=== PATIENT | female | born 1980 | race Asian ===

== ENCOUNTER 2017-10-26 13:55 | Outpatient (CLI) | payer BC | END 2017-10-26 13:56 | disposition home or self-care (01) | LOC: BICULT 13:55 | PROVIDERS: ATTEND Urology | DX: D30.01 Benign neoplasm of right kidney (principal); R35.0 Frequency of micturition; R31.29 Other microscopic hematuria; N28.9 Disorder of kidney and ureter, unspecified | CPT/HCPCS: 76770 ==

== ENCOUNTER 2017-12-01 16:04 | Emergency (ER) | payer BC ==
[~2017-12-01 16:04] MED LIST: Iopamidol 370 76% 100 ML VIAL ONE
[2017-12-01 17:20] LABS: #Basophils 0.1 thou/uL (0.0-0.2); #Eosinphils 0.2 thou/uL (0.0-0.7); #Lymphocytes 3.2 thou/uL (1.20-3.40); #Monocytes 0.5 thou/uL (0.11-0.59); #Neutrophils 6.1 thou/uL (1.40-6.50); %Basophils 0.8 % (0.0-1.0); %Eosinophils 1.9 % (0.0-10.0); %Lymphocytes 31.8 % (21.0-51.0); %Neutrophils 60.6 % (42.0-75.0); Hemoglobin 13.7 g/dL (12.0-16.0); Mean Corpuscular HGB CONC 33.8 g/dL (32.0-36.0); Mean Corpuscular Hemoglobin 28.8 pg (27.0-31.0); Mean Corpuscular Volume 85.2 fL (78.0-98.0); Mean Platelet Volume 7.3 fL (7.4-10.4); Platelet Count 235 thou/uL (130-400); RBC Distribution Width 10.8 % (11.5-14.5); Red Blood Cell (RBC) Count 4.75 mill/uL (4.20-5.40)
[2017-12-01 17:32] LABS: Anion Gap 10 mmol/L (10-20); BUN (Urea Nitrogen) 10 mg/dL (7.0-18.7); Calc. Creatinine Clearance 0 mL/min (70-130); Calcium 9.2 mg/dL (7.8-10.44); Carbon Dioxide 23 mmol/L (22-29); Chloride 109 mmol/L (98-107); Estimated GFR-MDRD 89; Glucose 90 mg/dL (70-105); Potassium 3.2 mmol/L (3.5-5.1); Sodium 139 mmol/L (136-145)
--- NOTE | 2017-12-01 18:57 | CT ---
CT OF NECK PERFORMED WITH INTRAVENOUS CONTRAST ENHANCEMENT: 12/01/17 HISTORY: Patient reports to the Emergency Department with the feeling of something stuck in her throat for the past month. Feeling worst today. Coughed up some blood noted in the phlegm. The visualized brain parenchyma is unremarkable. The parotid and submandibular glands are normal in a ppearance. No significant jugular chain adenopathy. The thyroid gland is normal in size. The tonsils do not appear enlarged. There is no peritonsillar inflammatory change. The parapharyngeal spaces are clear. Some tiny hypodensities associated with the left tonsillar pillar potentially very tiny crypts . I doubt this is of any significance. The epiglottis and vocal cord regions are normal in appearance. I do not see any evidence for airway compromise. The lung apices are clear. No evidence of any significant sinus disease. Minimal mucosal change of the left maxillary sinus is p resent. IMPRESSION: No acute abnormalities of the neck. POS: [facility]
== END 2017-12-01 18:18 | disposition home or self-care (01) ==
LOC: SCSER 16:04
DX: T17.208A Unspecified foreign body in pharynx causing other injury, initial encounter (principal); R13.10 Dysphagia, unspecified
CPT/HCPCS: 70492; 80048; 85025

== ENCOUNTER 2018-10-29 12:40 | Outpatient (CLI) | payer BC ==
--- NOTE | 2018-10-29 13:14 | ULT ---
Renal ultrasound: 10/29/2018 COMPARISON: 10/26/2017 HISTORY: Angiomyolipoma TECHNIQUE: Multiplanar grayscale sonographic imaging of the kidneys and urinary bladder obtained. FINDINGS: The right kidney measures 8.8 cm in craniocaudal dimension. Cortical thickness is 1.4 cm. N onspecific tiny echogenic focus noted within the renal cortex on the right measuring 3 x 4 x 3 mm. This is stable when compared to the prior examination. Left kidney measures 9.3 cm in craniocaudal dimension. Cortical thickness is 1.9 cm. No mass, hydrone phrosis, or stone on the left. Urinary bladder unremarkable. IMPRESSION: Stable renal ultrasound as detailed above.
== END 2018-10-29 12:41 | disposition home or self-care (01) ==
LOC: BICULT 12:40
PROVIDERS: ATTEND Urology
DX: D17.71 Benign lipomatous neoplasm of kidney (principal)
CPT/HCPCS: 76770; 81001; 87086

== ENCOUNTER 2021-01-05 08:38 | Outpatient (CLI) | payer BC ==
[2021-01-05] MEDS ORDERED: Iopamidol-370 76% 500 ML 1 ML ONE (09:34)
== END 2021-01-05 08:39 | disposition home or self-care (01) ==
LOC: BICCT 08:38
PROVIDERS: ATTEND Physician Assistant Medical
DX: R10.84 Generalized abdominal pain (principal); R63.4 Abnormal weight loss; R19.5 Other fecal abnormalities
CPT/HCPCS: 74177; Q9967

== ENCOUNTER 2021-01-26 09:33 | Outpatient (CLI) | payer BC | END 2021-01-26 09:34 | disposition home or self-care (01) | LOC: BICULT 09:33 | PROVIDERS: ATTEND Urology | DX: R31.29 Other microscopic hematuria (principal); R93.421 Abnormal radiologic findings on diagnostic imaging of right kidney | CPT/HCPCS: 76770 ==

== ENCOUNTER 2023-09-11 15:34 | Outpatient (CLI) | payer BC | END 2023-09-11 15:35 | disposition home or self-care (01) | LOC: BICULT 15:34 | PROVIDERS: ATTEND Urology | DX: D17.71 Benign lipomatous neoplasm of kidney (principal); R31.29 Other microscopic hematuria; R35.0 Frequency of micturition; R80.8 Other proteinuria | CPT/HCPCS: 36415; 76770; 80048; 81001; 87086 ==

== ENCOUNTER 2024-01-25 09:30 | Outpatient (CLI) | payer BC | END 2024-01-25 09:31 | disposition home or self-care (01) | LOC: BICULT 09:30 | PROVIDERS: ATTEND Internal Medicine Gastroenterology | DX: R93.2 Abnormal findings on diagnostic imaging of liver and biliary tract (principal); N28.89 Other specified disorders of kidney and ureter; R19.5 Other fecal abnormalities; R63.5 Abnormal weight gain; K76.89 Other specified diseases of liver | CPT/HCPCS: 76705 ==

== ENCOUNTER 2024-03-21 08:34 | Outpatient (CLI) | payer BC ==
[2024-03-21] MEDS ORDERED: E-Z-HD 98% W/W 340GM BOT (x-ray ONLY) ONE (08:54)
[2024-03-21] MEDS ORDERED: Barium Sulfate 96% 176 GM BOT (xray ONLY) ONE (08:54)
== END 2024-03-21 08:35 | disposition home or self-care (01) ==
LOC: RAD 08:34
PROVIDERS: ATTEND Internal Medicine Gastroenterology
DX: K64.8 Other hemorrhoids (principal); F45.8 Other somatoform disorders; R63.5 Abnormal weight gain
CPT/HCPCS: 74220

== ENCOUNTER 2024-10-22 09:10 | Outpatient (CLI) | payer BC ==
[2024-10-22] MEDS ORDERED: E-Z-HD 98% W/W 340GM BOT (x-ray ONLY) ONE (09:23)
[2024-10-22] MEDS ORDERED: Barium Sulfate 96% 176 GM BOT (xray ONLY) ONE (09:23)
== END 2024-10-22 09:11 | disposition home or self-care (01) ==
LOC: RAD 09:10
PROVIDERS: ATTEND Otolaryngology Plastic Surgery within the Head & Neck
DX: R13.19 Other dysphagia (principal)
CPT/HCPCS: 74220

== ENCOUNTER 2024-11-15 10:12 | Outpatient (CLI) | payer BC | END 2024-11-15 10:13 | disposition home or self-care (01) | LOC: BICULT 10:12 | PROVIDERS: ATTEND Urology | DX: D17.71 Benign lipomatous neoplasm of kidney (principal); R93.421 Abnormal radiologic findings on diagnostic imaging of right kidney | CPT/HCPCS: 76770 ==